=== PATIENT | female | born 1980 ===

== ENCOUNTER 2020-08-26 21:04 | Emergency (ER) | payer OTHER ==
[2020-08-27] MEDS ORDERED: HYDROcodone/ACETAMINOPHEN 5-325 MG TAB PO ONE (00:50)
[2020-08-27] MEDS ORDERED: IBUPROFEN 800 MG TAB PO ONE (00:50)
[2020-08-27] MEDS ORDERED: ONDANSETRON 4 MG ODT TAB PO ONE (00:50)
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
[2020-08-27 02:23] VITALS: BP 111/73
== END 2020-08-27 02:23 | disposition home or self-care (01) ==
LOC: ED 21:04
DX: S16.1XXA Strain of muscle, fascia and tendon at neck level, initial encounter (principal); S39.012A Strain of muscle, fascia and tendon of lower back, initial encounter; S80.02XA Contusion of left knee, initial encounter; S80.01XA Contusion of right knee, initial encounter; S20.219A Contusion of unspecified front wall of thorax, initial encounter; F17.200 Nicotine dependence, unspecified, uncomplicated; Z79.899 Other long term (current) drug therapy; V49.49XA Driver injured in collision with other motor vehicles in traffic accident, initial encounter; Y92.410 Unspecified street and highway as the place of occurrence of the external cause; Y93.89 Activity, other specified; Y99.8 Other external cause status
CPT/HCPCS: 71046; 72050; 72100; 99283; Q0162